=== PATIENT | male | born 1995 | race Hispanic/Latino ===

== ENCOUNTER 2017-08-12 21:01 | Emergency (ER) | payer SELFPAY ==
[2017-08-12 21:02] VITALS: BP 145/83; PULSE 94; RESP 16; TEMP 36.7; O2SAT 98; BMI 35.4
== END 2017-08-12 21:41 | disposition left against medical advice (07) ==
LOC: ED 21:43
PROVIDERS: Emergency Provider Emergency Medicine
DX: R69 Illness, unspecified (principal)

== ENCOUNTER 2017-08-14 12:14 | Emergency (ER) | payer SELFPAY ==
[2017-08-14 12:15] VITALS: BP 147/93; PULSE 92; RESP 15; TEMP 36.9; O2SAT 98; BMI 34.4
--- NOTE | 2017-08-14 12:37 | RAD_ITS ---
STUDY: X-RAY CHEST REASON FOR EXAM: Male, 21 years old. Cough. TECHNIQUE: PA and lateral views of the chest. COMPARISON: Comparison is made with prior study dated March 09, 2016. FINDINGS: The lungs are clear and expanded. Scattered calcified granulomas. There is no demonstrated pleural abnormality. Normal size heart. Normal mediastinum and kendra. Normal visualized pulmonary arteries. Normal visualized aortic arch and descending thoracic aorta. Normal visualized thoracic spine. Normal visualized ribs, clavicles, and shoulders. There is no demonstrated abnormality of the visualized soft tissue structures of the upper abdomen. RAD/Chest PA and Lateral IMPRESSION: Normal x-ray examination of the chest. Electronically Signed: Alex Chapa MD at 13:15 EDT Tel [phone], Service support ,
[2017-08-14] MEDS: Ketorolac 60 MG/2 ML Vial IM (13:03)
--- NOTE | 2017-08-14 13:58 | ED.VISSUMM ---
- ER Visit Summary Date of Service: 08/14/17 Chief Complaint: Spider bite, headache, purple feet, short of breath History of Present Illness: The patient is a 21 M who presents with all the above symptoms. He has had it for a couple of days. He states that he has redness in the right inner thigh. It is mildly tender. This started 4 days ago. He also complains of a pounding headache. He tried Excedrin without any relief. Denies any blurry vision, nausea or vomiting. No history of migraines. He states that his feet are purple. He states he walks everywhere. He also feels more short of breath in the morning. He denies a cough. He is a smoker. Physical Examination: Vital signs reviewed. HEENT exam unremarkable. Heart is regular rate and rhythm without murmurs. Lungs are clear to auscultation. Abdomen is soft and nontender. Extremities reveal no edema. He has good pulses in his feet. His feet are of normal color. They are warm to touch. He does have a 5 x 4 cm cellulitis of the right inner thigh. No abscess noted. Skin exam normal. Neurologic exam normal. Test Results: Chest x-ray normal Emergency Department Course and Treatment: The patient has a normal chest x-ray. I did give him Toradol for his headache. He has great pulses in his feet with normal color. I do not feel this needs to be worked up any further. I will give him Bactrim for the cellulitis of his right inner thigh. He declined any medications to help with his cough or shortness of breath. He was counseled to stop smoking. He will follow-up with his primary care physician Treatment Plan: [] Disposition: Discharge Impression: Right thigh cellulitis, headache This note was generated with [employer] dictation software. It may contain incorrect words, spelling, and punctuation that were not noted in review of the chart prior to signing ED Disposition - Plan for ED Patient: Chief Complaint: Abscess Referrals: Care Physician,No Primary [Primary Care Provider] -
--- NOTE | 2017-08-14 14:00 | ED.DEP ---
ED Disposition - Plan for ED Patient: Disposition: Home or Assisted Living Chief Complaint: Abscess Instructions: ED Infec Skin Cellulitis Prescriptions: Smz/Tmp Ds [Bactrim Ds] 1 tab PO BID #14 tab Referrals: Care Physician,No Primary [Primary Care Provider] -
[2017-08-14 14:04] VITALS: RESP 14
== END 2017-08-14 14:06 | disposition home or self-care (01) ==
PROVIDERS: Emergency Provider Emergency Medicine
DX: L03.115 Cellulitis of right lower limb (principal); R51 Headache; R06.00 Dyspnea, unspecified; Z86.79 Personal history of other diseases of the circulatory system; F17.200 Nicotine dependence, unspecified, uncomplicated
CPT/HCPCS: 71046; 96372; 99282